=== PATIENT | female | born 1975 | race Caucasian/White ===

== ENCOUNTER → 2017-07-01 | Outpatient (CLI) | payer BC ==
--- NOTE | 2017-07-01 15:45 | MG ---
Examination: Bilateral screening mammogram. Clinical history: Routine screening. Technique: Digital CC and MLO views of both breasts were obtained. Implant displaced views of both br easts were also obtained. Computer aided detection analysis was performed and used during the interpr etation. Comparison: 10/19/2012. Findings: The breasts are heterogeneously dense, reducing the sensitivity of mammography. Bilateral saline pros theses are normal in appearance. No suspicious mass, area of architectural distortion or suspicious cluster of microcalcifications is noted. Impression: 1. No mammographic evidence of malignancy. BI-RADS category 1-negative. Recommend routine annual screening mammogram. Diagnostic CAD was utilized and reviewed. * 0 (ZERO) - ASSESSMENT INCOMPLETE; ADDITIONAL IMAGING IS NEEDED. * 0C - ASSESSMENT INCOMPLETE, NEEDS ADDITIONAL IMAGING EVALUATION AND/OR PRIOR MAMMOGRAMS FOR COMPARI SON. * 1/1 (ONE) - NEGATIVE. * 2/II (TWO) - BENIGN FINDINGS. * 3/III (THREE) - PROBABLY BENIGN FINDING; SHORT INTERVAL FOLLOW-UP SUGGESTED. * 4/IV (FOUR) - SUSPICIOUS ABNORMALITY; BIOPSY SHOULD BE CONSIDERED. * 5/V - HIGHLY SUSPICIOUS OF MALIGNANCY; BIOPSY SHOULD BE PERFORMED. * 6/IV - KNOWN BIOPSY PROVEN MALIGNANCY-APPROPRIATE ACTION SHOULD BE TAKEN. A NEGATIVE X-RAY REPORT SHOULD NOT DELAY BIOPSY IF A DOMINANT OR CLINICALLY SUSPICIOUS MASS IS PRESENT; 4 TO 8 PERCENT OF CANCERS ARE NOT IDENTIFIED BY X-RAY. A NEGATIVE REPORT MAY REINFORCE THE CLINICAL IMPRESSION. ADENOSIS AND DENSE BREASTS MAY OBSCURE AN UNDERLYING NEOPLASM. Reported By:
== END ==
LOC: RAD 09:43
PROVIDERS: ATTEND Nurse Practitioner Family
DX: Z12.31 Encounter for screening mammogram for malignant neoplasm of breast (principal)
CPT/HCPCS: 77067

== ENCOUNTER 2020-03-15 11:09 | Observation (INO) ==
[2020-03-15] MEDS ORDERED: NS 1000 ML 1,000 ML ONE (12:55)
[2020-03-15] MEDS ORDERED: LEVAQUIN PREMIX IV 750 MG 750 MG/150 ML BAG IV SCH (13:00)
[2020-03-15] MEDS ORDERED: ZOFRAN INJ 4 MG VIAL IVP PRN (13:10)
[2020-03-15] MEDS: NS 1000 ML 1,000 ML IV SCH (13:11)
[2020-03-15] MEDS ORDERED: ZOFRAN INJ 4 MG VIAL ONE (13:12)
[2020-03-15 13:29] LABS: BASOPHILS % (AUTO) 0.4 % (0.2-1.0); EOSINOPHILS % (AUTO) 0.1 % (0.9-2.9); HEMATOCRIT 42.4 % (36.0-47.0); LYMPHOCYTES # (AUTO) 1.8 X10^3/uL (1.3-2.9); LYMPHOCYTES % (AUTO) 17.6 % (21.0-51.0); MEAN CORPUSCULAR HEMOGLOBIN 27.7 pg (27.0-34.0); MEAN CORPUSCULAR HGB CONC 33.1 g/dL (33.0-35.0); MEAN CORPUSCULAR VOLUME 83.8 fL (80.0-100.0); MEAN PLATELET VOLUME 8.3 fL (7.4-11.0); MONOCYTES # (AUTO) 0.6 x10^3/uL (0.3-0.8); MONOCYTES % (AUTO) 6.3 % (0.0-13.0); NEUTROPHILS # (AUTO) 7.7 x10^3/uL (2.2-4.8); NEUTROPHILS % (AUTO) 75.6 % (42.0-75.0); PLATELET COUNT 272 X10^3/uL (150.0-450.0); RED BLOOD COUNT 5.06 X10^6/uL (3.5-5.4); RED CELL DISTRIBUTION WIDTH 14.3 % (11.6-16.5); WHITE BLOOD COUNT 10.1 X10^3/uL (3.6-10.0)
[2020-03-15 13:49] LABS: ALANINE AMINOTRANSFERASE 22 Units/L (12-78); ALBUMIN 4.4 g/dL (3.4-5.0); ALKALINE PHOSPHATASE 61 Units/L (46-116); ASPARTATE AMINO TRANSFERASE 16 Units/L (15-37); BLOOD UREA NITROGEN 10 mg/dL (7-18); CALCIUM 8.9 mg/dL (8.5-10.1); CARBON DIOXIDE 27.4 mmol/L (21-32); CHLORIDE 101 mmol/L (98-107); CKMB % 1.3 % (<4); CREATINE KINASE 79 Units/L (26-192); CREATINE KINASE MB < 1.0 ng/mL (0-4.0); CREATININE 0.82 mg/dL (0.55-1.02); SODIUM 139 mmol/L (136-145); TOTAL PROTEIN 8.4 g/dL (6.4-8.2); TROPONIN I < 0.02 ng/mL (0-1.5); eGFR NON BLACK RACES > 60 (>60)
--- NOTE | 2020-03-15 13:49 | RAD ---
HISTORYCHEST PAINSTUDYCHEST, 1 VIEWCOMPARISONNoneFINDINGSThe trachea is midline. The cardiac silhouette is unremarkable . The lungs are clear without focal infiltrate or effusion. The bony thorax is unremarkable.IMPRESSIONNo acute cardiopulmonary disease.Electronically signed by: PARKER SAM (Mar 15, 2020 13:48:45)
[2020-03-15] MEDS ORDERED: KLOR-CON PO PRN (14:17)
[2020-03-15] MEDS ORDERED: POTASSIUM CHLORIDE LIQ 20 MEQ UDC PO PRN (14:17)
[2020-03-15] MEDS ORDERED: MICRO K EXTEN CAP 10 MEQ PO PRN (14:17)
[2020-03-15] MEDS ORDERED: POTASSIUM CHL 40 MEQ/NS 0.45% 500 ML IV PRN (14:17)
[2020-03-15] MEDS ORDERED: POTASSIUM CHL 60 MEQ/NS 0.45% 500 ML IV PRN (14:17)
[2020-03-15] MEDS ORDERED: K-RIDER 10 MEQ/NS 100 ML 10 MEQ/100 ML BAG IV PRN (14:17)
[2020-03-15 14:45] VITALS: BMI 32.3
[2020-03-15] MEDS: K-DUR TAB 20 MEQ PO PRN (14:48)
[2020-03-15] MEDS: FLONASE NASAL SPRAY ENOSTRIL SCH (14:48)
[2020-03-15] MEDS: ROCEPHIN VIAL 1 GRAM 1 G in NS 100 ML IV + SPIKE MINIBAG* 100 ML IV SCH (14:49)
[2020-03-15 16:56] LABS: CKMB % 1.4 % (<4); CREATINE KINASE 71 Units/L (26-192); CREATINE KINASE MB < 1.0 ng/mL (0-4.0); TROPONIN I < 0.02 ng/mL (0-1.5)
[2020-03-15 21:11] LABS: CKMB % 1.4 % (<4); CREATINE KINASE 72 Units/L (26-192); CREATINE KINASE MB < 1.0 ng/mL (0-4.0); TROPONIN I < 0.02 ng/mL (0-1.5)
[2020-03-15] MEDS: ZOFRAN INJ 4 MG VIAL 16 MG, ATIVAN INJ 2 MG VIAL 1 MG, DECADRON INJ 10 MG in NS 50 ML I... IV PRN (22:17)
[2020-03-15] MEDS: MUCINEX DM PO SCH (22:17)
[2020-03-16] MEDS: NS 1000 ML 1,000 ML IV SCH ×3 (01:04→18:30)
[2020-03-16 05:42] LABS: BASOPHILS % (AUTO) 0.1 % (0.2-1.0); HEMATOCRIT 38.6 % (36.0-47.0); HEMOGLOBIN 12.8 g/dL (12.0-16.0); LYMPHOCYTES # (AUTO) 0.9 X10^3/uL (1.3-2.9); LYMPHOCYTES % (AUTO) 7.9 % (21.0-51.0); MEAN CORPUSCULAR HGB CONC 33.2 g/dL (33.0-35.0); MEAN CORPUSCULAR VOLUME 84.2 fL (80.0-100.0); MEAN PLATELET VOLUME 8.6 fL (7.4-11.0); MONOCYTES # (AUTO) 0.1 x10^3/uL (0.3-0.8); MONOCYTES % (AUTO) 1.2 % (0.0-13.0); NEUTROPHILS % (AUTO) 90.8 % (42.0-75.0); PLATELET COUNT 234 X10^3/uL (150.0-450.0); RED BLOOD COUNT 4.58 X10^6/uL (3.5-5.4); RED CELL DISTRIBUTION WIDTH 14.5 % (11.6-16.5)
[2020-03-16 05:55] LABS: ALANINE AMINOTRANSFERASE 18 Units/L (12-78); ALBUMIN 3.6 g/dL (3.4-5.0); ALKALINE PHOSPHATASE 52 Units/L (46-116); ASPARTATE AMINO TRANSFERASE 13 Units/L (15-37); BLOOD UREA NITROGEN 7 mg/dL (7-18); CALCIUM 8.4 mg/dL (8.5-10.1); CARBON DIOXIDE 24.6 mmol/L (21-32); CHLORIDE 103 mmol/L (98-107); COR NA(FOR HYPERGLY) 139 mmol/L (136-145); CREATININE 0.71 mg/dL (0.55-1.02); SODIUM 138 mmol/L (136-145); TOTAL PROTEIN 7.3 g/dL (6.4-8.2); eGFR NON BLACK RACES > 60 (>60)
[2020-03-16 05:57] LABS: BAND NEUTROPHILS % 2 % (0-10); PLATELET MORPHOLOGY COMMENT NORMAL (NORMAL)
[2020-03-16] MEDS: MUCINEX DM PO SCH ×2 (08:47→21:45)
[2020-03-16] MEDS: FLONASE NASAL SPRAY ENOSTRIL SCH (08:47)
[2020-03-16] MEDS: ROCEPHIN VIAL 1 GRAM 1 G in NS 100 ML IV + SPIKE MINIBAG* 100 ML IV SCH (08:52)
--- NOTE | 2020-03-16 10:36 | DR.UPDATE ---
H&P Update History and Physical Update: History and Physical reviewed and patient examined. Changes noted: Yes with the following: IS A DIRECT ADMISSION TO THE HOSPTIAL DUE TO COMPLAINTS OF CHEST PAIN, SHORTNESS OF BREATH, NAUSEA AND VOMITING, DIARRHEA, SEVERE HEADACHE, SINUS CONGESTION, AND PALPITATIONS. SHE REPORTS TAKING CLINDAMYCIN AND MUCINEX AT HOME X 2 DAYS, BUT STOPPED TAKING DUE TO PALPITATIONS AND INCREASED NAUSEA AND VOMITING. ON ARRIVAL TO THE HOSPTIAL, VITALS WERE 99.2-76-20-97%-132/64. LABS WERE OBTAINED. ABNORMAL LAB VALUES INCLUDE THE FOLLOWING: WBC 10.1, POTASSIUM 3.2, TOTAL PROTEIN 8.4. CARDIAC ENZYMES WITHIN NORMAL LIMITS. STOOL STUDIES WERE OBTAINED AND WERE NORMAL. COVID-19 NEGATIVE. BLOOD AND STOOL CULTURES WERE SET UP. A CHEST XRAY WAS OBTAINED AND REVEALED: NO ACUTE CARDIOPULMONARY DISEASE. AN EKG WAS OBTAINED AND REVEALED: SINUS RHYTHM WITH HR 66. SHE WAS STARTED ON NORMAL SALINE AT 80 ML/HR, ROCEPHIN 1G IV DAILY, FLONASE 2 SPRAYS TO EACH NOSTRIL DAILY, MUCINEX DM 1 TABLET PO BID, THE POTASSIUM AND MAGNESIUM PROTOCOLS, AND A ZOFRAN COCKTAIL. TODAY, WE WILL OBTAIN A BRAIN CT WITHOUT CONTRAST DUE TO SEVERE HEADACHE. OTHERWISE, WE PLAN TO FOLLOW UP WITH AM LABS AND CONTINUE TO MONITOR. Prescription drug monitoring program results: PDMP was not reviewed H&P Reviewed: Yes Patient was examined?: Yes
[2020-03-16] MEDS ORDERED: ZOFRAN INJ 4 MG VIAL ONE (12:41)
[2020-03-16] MEDS ORDERED: DECADRON INJ ONE (12:42)
[2020-03-16] MEDS ORDERED: NS 50 ML IV 50 ML IV ONE (12:42)
[2020-03-16] MEDS ORDERED: ATIVAN INJ 2 MG VIAL ONE (12:43)
[2020-03-16] MEDS: ZOFRAN INJ 4 MG VIAL 16 MG, ATIVAN INJ 2 MG VIAL 1 MG, DECADRON INJ 10 MG in NS 50 ML I... IV PRN (13:20)
--- NOTE | 2020-03-16 15:10 | CT ---
BRAIN W/O CONCLINICAL INDICATION: SEVERE HEADACHESTECHNIQUE: Images were obtained through the head per standard CT protocol. Multiplanar reformatted images were generated from the CT dataset. Dose reduction techniques including Automated Exposure Control (AEC) and adjustment of mA and kV were utlized.COMPARISON:None.FINDINGS:There is no abnormal brain parenchymal density . There is no evidence of acute infarction, intracranial hemorrhage, mass or mass effect, or abnormal extra-axial collection . The density of the larger dural venous sinuses is normal . The ventricles are normal in size, shape and position . The skull base and calvarium are normal .The included paranasal sinuses and mastoid air cells are predominantly clear .IMPRESSION:1. No acute intracranial abnormality.Electronically signed by: TIFFANY EDWARDS (Mar 16, 2020 15:09:41)
[2020-03-16] MEDS ORDERED: BUTT CREAM (COMPOUND) TOP PRN (16:05)
[2020-03-16] MEDS ORDERED: BUTT CREAM (COMPOUND) ONE (16:07)
[2020-03-16] MEDS: TYLENOL 325 MG TAB PO PRN (22:21)
[2020-03-17] MEDS: NS 1000 ML 1,000 ML IV SCH ×3 (04:15→22:27)
[2020-03-17 05:50] LABS: BASOPHILS % (AUTO) 0.1 % (0.2-1.0); EOSINOPHILS % (AUTO) 0.1 % (0.9-2.9); HEMATOCRIT 36.2 % (36.0-47.0); LYMPHOCYTES # (AUTO) 2.2 X10^3/uL (1.3-2.9); LYMPHOCYTES % (AUTO) 14.5 % (21.0-51.0); MEAN CORPUSCULAR HEMOGLOBIN 27.6 pg (27.0-34.0); MEAN CORPUSCULAR HGB CONC 33.2 g/dL (33.0-35.0); MEAN CORPUSCULAR VOLUME 83.2 fL (80.0-100.0); MEAN PLATELET VOLUME 8.2 fL (7.4-11.0); MONOCYTES % (AUTO) 6.7 % (0.0-13.0); NEUTROPHILS % (AUTO) 78.6 % (42.0-75.0); PLATELET COUNT 217 X10^3/uL (150.0-450.0); RED BLOOD COUNT 4.35 X10^6/uL (3.5-5.4); RED CELL DISTRIBUTION WIDTH 14.6 % (11.6-16.5); WHITE BLOOD COUNT 15.2 X10^3/uL (3.6-10.0)
[2020-03-17 06:00] LABS: ALANINE AMINOTRANSFERASE 20 Units/L (12-78); ALBUMIN 3.4 g/dL (3.4-5.0); ALKALINE PHOSPHATASE 44 Units/L (46-116); ASPARTATE AMINO TRANSFERASE 12 Units/L (15-37); BLOOD UREA NITROGEN 8 mg/dL (7-18); CALCIUM 8.2 mg/dL (8.5-10.1); CARBON DIOXIDE 25.5 mmol/L (21-32); CHLORIDE 105 mmol/L (98-107); CREATININE 0.76 mg/dL (0.55-1.02); SODIUM 140 mmol/L (136-145); TOTAL PROTEIN 6.6 g/dL (6.4-8.2); eGFR NON BLACK RACES > 60 (>60)
--- NOTE | 2020-03-17 07:17 | PCM.PROG ---
Progress Note - Progress Note for Day of Date of Exam: 03/16/20 - Subjective Subjective: IS BEING TREATED FOR CHEST PAIN RULE OUT ACUTE [place], LEUKOCYTOSIS, AND ACUTE SINUS INFECTION. TODAY, SHE IS ALERT AND OREINTED, LYING IN BED ON MORNING ROUNDS. SHE CONTINUES WITH SHORTNESS OF BREATH AT TIMES, SEVERE HEADACHE, AND SINUS CONGESTION. ON EXAMINATION, HEART IS REGULAR IN RATE AND RHYTHM. BILATERAL LUNGS ARE NOTED WITH DIMINISHED LUNG SOUNDS THROUGHOUT. ABDOMEN IS ROUND, SOFT, AND NON-TENDER WITH NORMAL BOWEL SOUNDS NOTED IN ALL QUADRANTS. HER VITALS THIS MORNING ARE: 98..-80-18-98%-143/78. LABS WERE OBTAINED. ABNORMAL LAB VALUES INCLUDE THE FOLLOWING: WBC 11.0, GLUCOSE 131, CALCIUM 8.4, AST 13. CARDIAC ENZYMES ARE WITHIN NORMAL LIMITS. BLOOD AND STOOL CULTURES ARE PENDING. NO CHANGES NOTED TO EKGS. SHE IS CURRENTLY RECEIVING NORMAL SALINE AT 80 ML/HR, ROCEPHIN 1G IV DAILY, FLONASE 2 SPRAYS TO EACH NOSTRIL DAILY, MUCINEX DM 1 TABLET PO BID, THE POTASSIUM AND MAGNESIUM PROTOCOLS, AND A ZOFRAN COCKTAIL. WE WILL OBTAIN A BRAIN CT WITHOUT CONTRAST TODAY. OTHERWISE, WE PLAN TO FOLLOW UP WITH AM LABS AND CONTINUE TO MONITOR. - Past Medical Family Social History Past Med/Fam/Surg Hx: No changes since H&P Allergies: Allergies ibuprofen Allergy (Verified 03/15/20 13:14) levofloxacin [From Levaquin] Allergy (Verified 03/15/20 14:19) - Review of Systems ROS: No change since H&P - Vital Signs and I&O's Vital Signs: Temperature 98.8 F Pulse Rate [Right Brachial] 60 Respiratory Rate 16 Blood Pressure [Right Arm] 114/56 O2 Sat by Pulse Oximetry 97 Intake and Output: Intake & Output 03/14/20 03/15/20 03/16/20 03/17/20 11:59 11:59 11:59 11:59 Intake Total 1859 3902 / 3902 Balance 1859 3902 / 3902 - Physical Exam Oriented: Normal Eyes: Normal Ear: Normal Nose: Normal Throat: Normal Respiratory: Generalized, Diminished Cardiovascular: Normal : Normal Auscultation: Bowel Sounds: Normal Palpation: Normal Tenderness: Normal Skin: Normal Musculoskeletal: Normal Psychiatric: Normal Mood Description: Calm Affect: Normal Speech Pattern: Clear, Appropriate - Laboratory and Diagnostics Result Diagrams: 03/17/20 05:15 03/17/20 05:15 Labs: 03/15/20 13:09 Blood Blood Culture - Preliminary 03/15/20 13:00 Blood Blood Culture - Preliminary 03/15/20 18:00 Stool - Final Laboratory WBC 15.2 X10^3/uL (3.6-10.0) H 03/17/20 05:15 RBC 4.35 X10^6/uL (3.5-5.4) 03/17/20 05:15 Hgb 12.0 g/dL (12.0-16.0) 03/17/20 05:15 Hct 36.2 % (36.0-47.0) 03/17/20 05:15 MCV 83.2 fL (80.0-100.0) 03/17/20 05:15 MCH 27.6 pg (27.0-34.0) 03/17/20 05:15 MCHC 33.2 g/dL (33.0-35.0) 03/17/20 05:15 RDW 14.6 % (11.6-16.5) 03/17/20 05:15 Plt Count 217 X10^3/uL (150.0-450.0) 03/17/20 05:15 Plt Count Comment Adequate (ADEQUATE) 03/16/20 04:20 MPV 8.2 fL (7.4-11.0) 03/17/20 05:15 Neut % (Auto) 78.6 % (42.0-75.0) H 03/17/20 05:15 Lymph % (Auto) 14.5 % (21.0-51.0) L 03/17/20 05:15 Preston % (Auto) 6.7 % (0.0-13.0) 03/17/20 05:15 Eos % (Auto) 0.1 % (0.9-2.9) L 03/17/20 05:15 Baso % (Auto) 0.1 % (0.2-1.0) L 03/17/20 05:15 Neut # (Auto) 12.0 x10^3/uL (2.2-4.8) H 03/17/20 05:15 Lymph # (Auto) 2.2 X10^3/uL (1.3-2.9) 03/17/20 05:15 Preston # (Auto) 1.0 x10^3/uL (0.3-0.8) H 03/17/20 05:15 Eos # (Auto) 0.0 x10^3/uL (0.0-0.2) 03/17/20 05:15 Baso # (Auto) 0.0 X10^3/uL (0.0-0.1) 03/17/20 05:15 Absolute Nucleated RBC 0.0 /100WBC 03/17/20 05:15 Total Counted 100 03/16/20 04:20 Neutrophils % (Manual) 90 % (39-76) H 03/16/20 04:20 Band Neutrophils % 2 % (0-10) 03/16/20 04:20 Lymphocytes % (Manual) 7 % (13-43) L 03/16/20 04:20 Monocytes % (Manual) 1 % (4-9) L 03/16/20 04:20 Plt Morphology Comment Normal (NORMAL) 03/16/20 04:20 RBC Morphology Normal (NORMAL) 03/16/20 04:20 Sodium 140 mmol/L (136-145) 03/17/20 05:15 Corrected Sodium TNP 03/17/20 05:15 Potassium 3.1 mmol/L (3.5-5.1) L 03/17/20 05:15 Chloride 105 mmol/L (98-107) 03/17/20 05:15 Carbon Dioxide 25.5 mmol/L (21-32) 03/17/20 05:15 BUN 8 mg/dL (7-18) 03/17/20 05:15 Creatinine 0.76 mg/dL (0.55-1.02) 03/17/20 05:15 Est GFR (MDRD) Af Amer > 60 (>60) 03/17/20 05:15 Est GFR (MDRD) Non-Af > 60 (>60) 03/17/20 05:15 Glucose 110 mg/dL (65-99) H 03/17/20 05:15 Calcium 8.2 mg/dL (8.5-10.1) L 03/17/20 05:15 Corrected Calcium TNP 03/17/20 05:15 Magnesium 1.7 mg/dL (1.7-2.9) 03/15/20 13:00 Ferritin 44 ng/mL (8-252) 03/15/20 13:00 Total Bilirubin 0.30 mg/dL (0.2-1.0) 03/17/20 05:15 AST 12 Units/L (15-37) L 03/17/20 05:15 ALT 20 Units/L (12-78) 03/17/20 05:15 Alkaline Phosphatase 44 Units/L (46-116) L 03/17/20 05:15 Creatine Kinase 72 Units/L (26-192) 03/15/20 20:44 CK-MB (CK-2) < 1.0 ng/mL (0-4.0) 03/15/20 20:44 CK/CKMB % Calc 1.4 % (<4) 03/15/20 20:44 Troponin I < 0.02 ng/mL (0-1.5) 03/15/20 20:44 C-Reactive Protein < 0.50 mg/L (0-3.0) 03/15/20 13:00 Total Protein 6.6 g/dL (6.4-8.2) 03/17/20 05:15 Albumin 3.4 g/dL (3.4-5.0) 03/17/20 05:15 Globulin 3.2 g/dL (2.5-4.5) 03/17/20 05:15 Albumin/Globulin Ratio 1.1 Ratio (1.1-2.1) 03/17/20 05:15 Stool Description 10 g.liquid/brown 03/15/20 18:00 Stl Occult Blood (IFOB) Negative (NEGATIVE) 03/15/20 18:00 Stool for White Cells Negative (NEGATIVE) 03/15/20 18:00 Stl C. diff Tox B Gene Negative (NEGATIVE) 03/15/20 18:00 Stl C. diff 027-NAP1-BI Negative (NEGATIVE) 03/15/20 18:00 SARS-CoV-2 (PCR) Negative (NEGATIVE) 03/15/20 12:15 - Plan (1) Leukocytosis Status: Acute Qualifiers: Leukocytosis type: unspecified Qualified Code(s): D72.829 - Elevated white blood cell count, unspecified Plan: NORMAL SALINE AT 80 ML/HR, ROCEPHIN 1G IV DAILY, FLONASE 2 SPRAYS TO EACH NOSTRIL DAILY, MUCINEX DM 1 TABLET PO BID, THE POTASSIUM AND MAGNESIUM PROTOCOLS, AND A ZOFRAN COCKTAIL (2) Sinus infection Status: Acute Qualifiers: Sinusitis location: frontal Chronicity: acute (3) Severe headache Status: Acute (4) Chest pain, rule out acute myocardial infarction Status: Acute
[2020-03-17] MEDS: TYLENOL 325 MG TAB PO PRN (08:18)
[2020-03-17] MEDS: K-DUR TAB 20 MEQ PO PRN (08:19)
[2020-03-17] MEDS: ROCEPHIN VIAL 1 GRAM 1 G in NS 100 ML IV + SPIKE MINIBAG* 100 ML IV SCH (08:19)
[2020-03-17] MEDS: FLONASE NASAL SPRAY ENOSTRIL SCH (08:30)
[2020-03-17] MEDS: ZOFRAN INJ 4 MG VIAL 16 MG, ATIVAN INJ 2 MG VIAL 1 MG, DECADRON INJ 10 MG in NS 50 ML I... IV PRN ×2 (08:41→21:00)
[2020-03-17] MEDS: MUCINEX DM PO SCH ×2 (10:55→20:58)
[2020-03-17] MEDS ORDERED: ZOSYN VIAL 4.5 GRAMS IV ONE (11:05)
[2020-03-17] MEDS: ZOSYN VIAL 4.5 GRAMS 4.5 G in NS 100 ML IV 100 ML IV SCH ×3 (11:12→21:00)
[2020-03-17 12:33] LABS: MAGNESIUM 1.5 mg/dL (1.7-2.9)
[2020-03-17] MEDS: MAGNESIUM SULFATE 1 GRAM/100 mL PREMIX 1 GM/100 ML BAG IV PRN ×2 (13:42→17:04)
[2020-03-17] MEDS ORDERED: NS 100 ML IV + SPIKE MINIBAG* 100 ML IV ONE (19:18)
--- NOTE | 2020-03-17 23:31 | PCM.PROG ---
Progress Note - Progress Note for Day of Date of Exam: 03/17/20 - Subjective Subjective: IS BEING TREATED FOR CHEST PAIN RULE OUT ACUTE [place], LEUKOCYTOSIS, AND ACUTE SINUS INFECTION. TODAY, SHE IS ALERT AND OREINTED, LYING IN BED ON MORNING ROUNDS. SHE CONTINUES WITH SEVERE HEADACHE AND SINUS CONGESTION. SHE REPORTS A BURING SENSATION THAT STARTS AT THE BASE OF THE HEAD A ND RUNS DOWN THE SPINE TO THE FEET. SHE DENIES CHEST PAIN THIS MORNING. ON EXAMINATION, HEART IS REGULAR IN RATE AND RHYTHM. BILATERAL LUNGS ARE NOTED WITH DIMINISHED LUNG SOUNDS THROUGHOUT. ABDOMEN IS ROUND, SOFT, AND NON-TENDER WITH NORMAL BOWEL SOUNDS NOTED IN ALL QUADRANTS. HER VITALS THIS MORNING ARE: 98.7-60-16-97%-114/56. LABS WERE OBTAINED. ABNORMAL LAB VALUES INCLUDE THE FOLLOWING: WBC INCREASED TO 15.2, POTASSIUM 3.1, GLUCOSE 110, CALCIUM 8.2, AST 12, ALK PHOS 44, . CARDIAC ENZYMES ARE WITHIN NORMAL LIMITS. BLOOD AND STOOL CULTURES ARE PENDING. NO CHANGES NOTED TO EKGS. BRAIN CT WAS NEGATIVE. SHE IS CURRENTLY RECEIVING NORMAL SALINE AT 80 ML/HR, ROCEPHIN 1G IV DAILY, FLONASE 2 SPRAYS TO EACH NOSTRIL DAILY, MUCINEX DM 1 TABLET PO BID, THE POTASSIUM AND MAGNESIUM PROTOCOLS, AND A ZOFRAN COCKTAIL. TODAY, WE WILL DISCONTINUE THE ROCEPHIN AND START ZOSYN 4.5G IV TID. WE WILL CHECK A CRP AND ESR LEVEL THIS MORNING. SHE IS CURRENTLY FOLLOWED BY A [facility] CONSULTANT. WE WILL OBTAIN LAB WORK THAT WAS RECENTLY COLLECTED AT HIS OFFICE. OTHERWISE, WE PLAN TO FOLLOW UP WITH AM LABS AND CONTINUE TO MONITOR. - Past Medical Family Social History Past Med/Fam/Surg Hx: No changes since H&P Allergies: Allergies ibuprofen Allergy (Verified 03/15/20 13:14) levofloxacin [From Levaquin] Allergy (Verified 03/15/20 14:19) - Review of Systems ROS: No change since H&P - Vital Signs and I&O's Vital Signs: Temperature 99.1 F Pulse Rate [Right Brachial] 69 Respiratory Rate 18 Blood Pressure [Right Arm] 125/66 O2 Sat by Pulse Oximetry 96 Intake and Output: Intake & Output 03/15/20 03/16/20 03/17/20 03/18/20 11:59 11:59 11:59 11:59 Intake Total 1860 / 1860 3902 / 3902 2180 / 2180 Balance 1859 3902 / 3902 2180 / 2180 - Physical Exam Oriented: Normal Eyes: Normal Ear: Normal Nose: Normal Throat: Normal Respiratory: Generalized, Diminished Cardiovascular: Normal : Normal Auscultation: Bowel Sounds: Normal Tenderness: Normal Skin: Normal Musculoskeletal: Normal Psychiatric: Normal Mood Description: Calm Affect: Normal Speech Pattern: Clear, Appropriate - Laboratory and Diagnostics Result Diagrams: 03/17/20 05:15 03/17/20 12:16 Labs: 03/15/20 18:00 Stool Stool Culture - Preliminary 03/15/20 18:00 Stool - Final 03/15/20 13:09 Blood Blood Culture - Preliminary 03/15/20 13:00 Blood Blood Culture - Preliminary Laboratory WBC 15.2 X10^3/uL (3.6-10.0) H 03/17/20 05:15 RBC 4.35 X10^6/uL (3.5-5.4) 03/17/20 05:15 Hgb 12.0 g/dL (12.0-16.0) 03/17/20 05:15 Hct 36.2 % (36.0-47.0) 03/17/20 05:15 MCV 83.2 fL (80.0-100.0) 03/17/20 05:15 MCH 27.6 pg (27.0-34.0) 03/17/20 05:15 MCHC 33.2 g/dL (33.0-35.0) 03/17/20 05:15 RDW 14.6 % (11.6-16.5) 03/17/20 05:15 Plt Count 217 X10^3/uL (150.0-450.0) 03/17/20 05:15 Plt Count Comment Adequate (ADEQUATE) 03/16/20 04:20 MPV 8.2 fL (7.4-11.0) 03/17/20 05:15 Neut % (Auto) 78.6 % (42.0-75.0) H 03/17/20 05:15 Lymph % (Auto) 14.5 % (21.0-51.0) L 03/17/20 05:15 [place] % (Auto) 6.7 % (0.0-13.0) 03/17/20 05:15 Eos % (Auto) 0.1 % (0.9-2.9) L 03/17/20 05:15 Baso % (Auto) 0.1 % (0.2-1.0) L 03/17/20 05:15 Neut # (Auto) 12.0 x10^3/uL (2.2-4.8) H 03/17/20 05:15 Lymph # (Auto) 2.2 X10^3/uL (1.3-2.9) 03/17/20 05:15 [place] # (Auto) 1.0 x10^3/uL (0.3-0.8) H 03/17/20 05:15 Eos # (Auto) 0.0 x10^3/uL (0.0-0.2) 03/17/20 05:15 Baso # (Auto) 0.0 X10^3/uL (0.0-0.1) 03/17/20 05:15 Absolute Nucleated RBC 0.0 /100WBC 03/17/20 05:15 Total Counted 100 03/16/20 04:20 Neutrophils % (Manual) 90 % (39-76) H 03/16/20 04:20 Band Neutrophils % 2 % (0-10) 03/16/20 04:20 Lymphocytes % (Manual) 7 % (13-43) L 03/16/20 04:20 Monocytes % (Manual) 1 % (4-9) L 03/16/20 04:20 Plt Morphology Comment Normal (NORMAL) 03/16/20 04:20 RBC Morphology Normal (NORMAL) 03/16/20 04:20 ESR 6 MM/HOUR (0-20) 03/17/20 05:15 Sodium 140 mmol/L (136-145) 03/17/20 05:15 Corrected Sodium TNP 03/17/20 05:15 Potassium 3.4 mmol/L (3.5-5.1) L 03/17/20 12:16 Chloride 105 mmol/L (98-107) 03/17/20 05:15 Carbon Dioxide 25.5 mmol/L (21-32) 03/17/20 05:15 BUN 8 mg/dL (7-18) 03/17/20 05:15 Creatinine 0.76 mg/dL (0.55-1.02) 03/17/20 05:15 Est GFR (MDRD) Af Amer > 60 (>60) 03/17/20 05:15 Est GFR (MDRD) Non-Af > 60 (>60) 03/17/20 05:15 Glucose 110 mg/dL (65-99) H 03/17/20 05:15 Calcium 8.2 mg/dL (8.5-10.1) L 03/17/20 05:15 Corrected Calcium TNP 03/17/20 05:15 Magnesium 1.5 mg/dL (1.7-2.9) L 03/17/20 12:16 Ferritin 44 ng/mL (8-252) 03/15/20 13:00 Total Bilirubin 0.30 mg/dL (0.2-1.0) 03/17/20 05:15 AST 12 Units/L (15-37) L 03/17/20 05:15 ALT 20 Units/L (12-78) 03/17/20 05:15 Alkaline Phosphatase 44 Units/L (46-116) L 03/17/20 05:15 Creatine Kinase 72 Units/L (26-192) 03/15/20 20:44 CK-MB (CK-2) < 1.0 ng/mL (0-4.0) 03/15/20 20:44 CK/CKMB % Calc 1.4 % (<4) 03/15/20 20:44 Troponin I < 0.02 ng/mL (0-1.5) 03/15/20 20:44 C-Reactive Protein 0.00 mg/L (0-3.0) 03/17/20 09:00 Total Protein 6.6 g/dL (6.4-8.2) 03/17/20 05:15 Albumin 3.4 g/dL (3.4-5.0) 03/17/20 05:15 Globulin 3.2 g/dL (2.5-4.5) 03/17/20 05:15 Albumin/Globulin Ratio 1.1 Ratio (1.1-2.1) 03/17/20 05:15 Stool Description 10 g.liquid/brown 03/15/20 18:00 Stl Occult Blood (IFOB) Negative (NEGATIVE) 03/15/20 18:00 Stool for White Cells Negative (NEGATIVE) 03/15/20 18:00 Stl C. diff Tox B Gene Negative (NEGATIVE) 03/15/20 18:00 Stl C. diff [id number]-BI Negative (NEGATIVE) 03/15/20 18:00 SARS-CoV-2 (PCR) Negative (NEGATIVE) 03/15/20 12:15 - Plan (1) Leukocytosis Status: Acute Qualifiers: Leukocytosis type: unspecified Qualified Code(s): D72.829 - Elevated white blood cell count, unspecified Plan: NORMAL SALINE AT 80 ML/HR, ROCEPHIN 1G IV DAILY, FLONASE 2 SPRAYS TO EACH NOSTRIL DAILY, MUCINEX DM 1 TABLET PO BID, THE POTASSIUM AND MAGNESIUM P ROTOCOLS, AND A ZOFRAN COCKTAIL (2) Sinus infection Status: Acute Qualifiers: Sinusitis location: frontal Chronicity: acute (3) Severe headache Status: Acute (4) Chest pain, rule out acute myocardial infarction Status: Acute
[2020-03-18] MEDS: NS 1000 ML 1,000 ML IV SCH ×2 (05:19→21:07)
[2020-03-18] MEDS: ZOSYN VIAL 4.5 GRAMS 4.5 G in NS 100 ML IV 100 ML IV SCH ×3 (05:19→21:07)
[2020-03-18 05:36] LABS: BASOPHILS % (AUTO) 0.1 % (0.2-1.0); HEMATOCRIT 34.9 % (36.0-47.0); HEMOGLOBIN 11.5 g/dL (12.0-16.0); LYMPHOCYTES # (AUTO) 1.1 X10^3/uL (1.3-2.9); LYMPHOCYTES % (AUTO) 9.9 % (21.0-51.0); MEAN CORPUSCULAR HEMOGLOBIN 27.7 pg (27.0-34.0); MEAN CORPUSCULAR HGB CONC 32.9 g/dL (33.0-35.0); MEAN CORPUSCULAR VOLUME 84.1 fL (80.0-100.0); MEAN PLATELET VOLUME 8.8 fL (7.4-11.0); MONOCYTES # (AUTO) 0.4 x10^3/uL (0.3-0.8); MONOCYTES % (AUTO) 3.3 % (0.0-13.0); NEUTROPHILS # (AUTO) 9.9 x10^3/uL (2.2-4.8); NEUTROPHILS % (AUTO) 86.7 % (42.0-75.0); PLATELET COUNT 211 X10^3/uL (150.0-450.0); RED BLOOD COUNT 4.15 X10^6/uL (3.5-5.4); RED CELL DISTRIBUTION WIDTH 14.2 % (11.6-16.5); WHITE BLOOD COUNT 11.4 X10^3/uL (3.6-10.0)
[2020-03-18 05:41] LABS: ALANINE AMINOTRANSFERASE 20 Units/L (12-78); ALBUMIN 3.3 g/dL (3.4-5.0); ALKALINE PHOSPHATASE 42 Units/L (46-116); ASPARTATE AMINO TRANSFERASE 9 Units/L (15-37); BLOOD UREA NITROGEN 8 mg/dL (7-18); CALCIUM 7.9 mg/dL (8.5-10.1); CARBON DIOXIDE 28.1 mmol/L (21-32); CHLORIDE 103 mmol/L (98-107); COR CA(FOR HYPOALB) 8.5 mg/dL (8.5-10.1); COR NA(FOR HYPERGLY) 140 mmol/L (136-145); MAGNESIUM 1.7 mg/dL (1.7-2.9); SODIUM 139 mmol/L (136-145); TOTAL PROTEIN 6.6 g/dL (6.4-8.2); eGFR NON BLACK RACES > 60 (>60)
[2020-03-18 06:25] LABS: ERYTHROCYTE SEDIMENTATION RATE 7 MM/HOUR (0-20)
[2020-03-18] MEDS: MAGNESIUM SULFATE 1 GRAM/100 mL PREMIX 1 GM/100 ML BAG IV PRN ×2 (06:45→08:48)
[2020-03-18] MEDS: K-DUR TAB 20 MEQ PO PRN (08:48)
[2020-03-18] MEDS: FLONASE NASAL SPRAY ENOSTRIL SCH (08:50)
[2020-03-18] MEDS: MUCINEX DM PO SCH (08:50)
[2020-03-18] MEDS ORDERED: VALIUM PO ONE (09:43)
[2020-03-18] MEDS ORDERED: SOLU-Medrol 125 MG VIAL IVP ONE (09:44)
[2020-03-18] MEDS ORDERED: VALIUM ONE (09:49)
[2020-03-18] MEDS: SOLU-Medrol 40 MG VIAL IVP SCH ×2 (13:39→21:07)
[2020-03-18] MEDS: TYLENOL 325 MG TAB PO PRN (14:07)
[2020-03-18] MEDS ORDERED: DUONEB 0.5 MG/3 MG (3 mL) NEB ONE (18:28)
[2020-03-18] MEDS: DUONEB 0.5 MG/3 MG (3 mL) NEB PRN ×2 (18:33→21:20)
[2020-03-18] MEDS ORDERED: NS 100 ML IV + SPIKE MINIBAG* 100 ML IV ONE (19:02)
[2020-03-18] MEDS: VALIUM PO PRN (21:08)
[2020-03-19] MEDS ORDERED: NS 100 ML IV + SPIKE MINIBAG* 100 ML IV ONE (03:50)
[2020-03-19] MEDS: SOLU-Medrol 40 MG VIAL IVP SCH ×3 (05:02→21:12)
[2020-03-19] MEDS: ZOSYN VIAL 4.5 GRAMS 4.5 G in NS 100 ML IV 100 ML IV SCH ×3 (05:03→22:39)
[2020-03-19 06:11] LABS: BASOPHILS % (AUTO) 0.1 % (0.2-1.0); HEMATOCRIT 34.3 % (36.0-47.0); HEMOGLOBIN 11.2 g/dL (12.0-16.0); LYMPHOCYTES # (AUTO) 1.4 X10^3/uL (1.3-2.9); LYMPHOCYTES % (AUTO) 9.4 % (21.0-51.0); MEAN CORPUSCULAR HEMOGLOBIN 27.6 pg (27.0-34.0); MEAN CORPUSCULAR HGB CONC 32.7 g/dL (33.0-35.0); MEAN CORPUSCULAR VOLUME 84.4 fL (80.0-100.0); MEAN PLATELET VOLUME 8.5 fL (7.4-11.0); MONOCYTES # (AUTO) 0.7 x10^3/uL (0.3-0.8); MONOCYTES % (AUTO) 4.7 % (0.0-13.0); NEUTROPHILS # (AUTO) 12.4 x10^3/uL (2.2-4.8); NEUTROPHILS % (AUTO) 85.8 % (42.0-75.0); PLATELET COUNT 196 X10^3/uL (150.0-450.0); RED BLOOD COUNT 4.06 X10^6/uL (3.5-5.4); RED CELL DISTRIBUTION WIDTH 14.6 % (11.6-16.5); WHITE BLOOD COUNT 14.5 X10^3/uL (3.6-10.0)
[2020-03-19 06:13] LABS: ALANINE AMINOTRANSFERASE 24 Units/L (12-78); ALBUMIN 3.1 g/dL (3.4-5.0); ALKALINE PHOSPHATASE 39 Units/L (46-116); ASPARTATE AMINO TRANSFERASE 11 Units/L (15-37); BLOOD UREA NITROGEN 9 mg/dL (7-18); CALCIUM 7.9 mg/dL (8.5-10.1); CARBON DIOXIDE 25.4 mmol/L (21-32); CHLORIDE 105 mmol/L (98-107); COR CA(FOR HYPOALB) 8.6 mg/dL (8.5-10.1); COR NA(FOR HYPERGLY) 141 mmol/L (136-145); CREATININE 0.74 mg/dL (0.55-1.02); MAGNESIUM 1.7 mg/dL (1.7-2.9); SODIUM 140 mmol/L (136-145); TOTAL PROTEIN 6.2 g/dL (6.4-8.2); eGFR NON BLACK RACES > 60 (>60)
[2020-03-19] MEDS: DUONEB 0.5 MG/3 MG (3 mL) NEB PRN ×3 (09:39→21:17)
[2020-03-19] MEDS: FLONASE NASAL SPRAY ENOSTRIL SCH (09:44)
[2020-03-19] MEDS: NS 1000 ML 1,000 ML IV SCH ×2 (09:44→21:10)
[2020-03-19] MEDS: VALIUM PO PRN ×2 (10:40→21:10)
[2020-03-19] MEDS: ROBITUSSIN (PLAIN) PO SCH ×4 (11:47→21:07)
[2020-03-19] MEDS: TYLENOL 325 MG TAB PO PRN (13:01)
--- NOTE | 2020-03-19 14:44 | MRI ---
HISTORYSEVERE NECK PAINSTUDYCERVICAL W/O CONCOMPARISONNone availableTECHNIQUEMultiplanar multisequence MRI of the cervical spine was obtained utilizing standard departmental protocol.FINDINGSThere is a straightening of the cervical spine. The cervical cord is normal in size and signal. There is a mild focal deformity of C2 along the odontoid and the vertebral body that could be congenital versus an old fracture. there is mild atlantoaxial facet disease in the left. No focal stenosis at C1-C2. There is no evidence of bone marrow edema. No focal bone marrow lesions. The vertebral height and disc spaces are preserved. There is and small anterior osteophyte at C3-C4. The thyroid gland is no significant enlarged.C2 -- C3: No evidence of disc herniation or spinal canal or neural foraminal stenosesC3 -- C4: There is a broad-based disc osteophyte, no evidence of a spinal canal or neural foraminal stenosis, mild facet hypertrophyC4 -- C5: No disc herniation or significant spinal canal or neural foraminal stenosesC5 -- C6: No disc herniation or spinal canal or neural foraminal stenosis, no facet diseaseC6 -- C7: There is a small disc bulging with a left paracentral component,no evidence of spinal canal or neural foraminal stenosis no facet diseaseC7 -- T1: No evidence of disc herniation or spinal canal or neural foraminal stenoses, no facet disease.IMPRESSIONBroad-based disc osteophyte at C3-C4 without spinal canal stenosis and mild facet hypertrophy. 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
--- NOTE | 2020-03-19 19:22 | PCM.PROG ---
Progress Note - Progress Note for Day of Date of Exam: 03/18/20 - Subjective Subjective: IS BEING TREATED FOR CHEST PAIN RULE OUT ACUTE MD, LEUKOCYTOSIS, ACUTE SINUS INFECTION, AND SEVERE NECK PAIN. TODAY, SHE IS ALERT AND ORIENTED, LYING IN BED ON MORNING ROUNDS. SHE CONTINUES WITH SEVERE HEADACHE AND SINUS CONGESTION. SHE REPORTS A BURING SENSATION THAT STARTS AT THE BASE OF THE HEAD AND RUNS DOWN THE SPINE TO THE FEET. SHE DENIES CHEST PAIN THIS MORNING. ON EXAMINATION, HEART IS REGULAR IN RATE AND RHYTHM. BILATERAL LUNGS ARE NOTED WITH DIMINISHED LUNG SOUNDS THROUGHOUT. ABDOMEN IS ROUND, SOFT, AND NON-TENDER WITH NORMAL BOWEL SOUNDS NOTED IN ALL QUADRANTS. HER VITALS THIS MORNING ARE: 98.1-75-20-98%-127/59. LABS WERE OBTAINED. ABNORMAL LAB VALUES INCLUDE THE FOLLOWING: WBC 11.4, HGB 11.5, HCT 34.9, POTASSIUM 3.4, GLUCOSE 131, CALCIUM 7.9, AST 9, ALK PHOS 42, ALBUMIN 3.3. CARDIAC ENZYMES ARE WITHIN NORMAL LIMITS. BLOOD AND STOOL CULTURES ARE PENDING. SHE IS CURRENTLY RECEIVING NORMAL SALINE AT 80 ML/HR, ZOSYN 4.5G IV TID, FLONASE 2 SPRAYS TO EACH NOSTRIL DAILY, THE POTASSIUM AND MAGNESIUM PROTOCOLS, AND A ZOFRAN COCKTAIL. TODAY, WE WILL ADD VALIUM 5MG PO TID PRN, SOLU-MEDROL 80MG IV Q8H, OBTAIN A CERVICAL SPINE MRI WITHOUT CONTRAST, AND AN ANCA PROFILE. OTHERWISE, WE PLAN TO FOLLOW UP WITH AM LABS AND CONTINUE TO MONITOR. - Past Medical Family Social History Past Med/Fam/Surg Hx: No changes since H&P Allergies: Allergies ibuprofen Allergy (Verified 03/15/20 13:14) levofloxacin [From Levaquin] Allergy (Verified 03/15/20 14:19) - Review of Systems ROS: No change since H&P - Vital Signs and I&O's Vital Signs: Temperature 98.8 F Pulse Rate [Right Brachial] 63 Pulse Rate 63 Respiratory Rate 18 Blood Pressure [Right Arm] 134/61 O2 Sat by Pulse Oximetry 96 Intake and Output: Intake & Output 03/17/20 03/18/20 03/19/20 03/20/20 11:59 11:59 11:59 11:59 Intake Total 3902 / 3902 3780 / 3780 2960 / 2960 740 / 740 Balance 3902 / 3902 3780 / 3780 2960 / 2960 740 / 740 - Physical Exam Oriented: Normal Eyes: Normal Ear: Normal Nose: Normal Throat: Normal Respiratory: Generalized, Diminished Cardiovascular: Normal : Normal Auscultation: Bowel Sounds: Normal Palpation: Normal Tenderness: Normal Skin: Normal Musculoskeletal: Normal Psychiatric: Normal Mood Description: Calm Affect: Normal Speech Pattern: Clear, Appropriate - Laboratory and Diagnostics Result Diagrams: 03/19/20 05:12 03/19/20 05:12 Labs: 03/15/20 18:00 Stool Stool Culture - Final 03/15/20 18:00 Stool - Final 03/15/20 13:09 Blood Blood Culture - Preliminary 03/15/20 13:00 Blood Blood Culture - Preliminary Laboratory WBC 14.5 X10^3/uL (3.6-10.0) H 03/19/20 05:12 RBC 4.06 X10^6/uL (3.5-5.4) 03/19/20 05:12 Hgb 11.2 g/dL (12.0-16.0) L 03/19/20 05:12 Hct 34.3 % (36.0-47.0) L 03/19/20 05:12 MCV 84.4 fL (80.0-100.0) 03/19/20 05:12 MCH 27.6 pg (27.0-34.0) 03/19/20 05:12 MCHC 32.7 g/dL (33.0-35.0) L 03/19/20 05:12 RDW 14.6 % (11.6-16.5) 03/19/20 05:12 Plt Count 196 X10^3/uL (150.0-450.0) 03/19/20 05:12 Plt Count Comment Adequate (ADEQUATE) 03/16/20 04:20 MPV 8.5 fL (7.4-11.0) 03/19/20 05:12 Neut % (Auto) 85.8 % (42.0-75.0) H 03/19/20 05:12 Lymph % (Auto) 9.4 % (21.0-51.0) L 03/19/20 05:12 [place] % (Auto) 4.7 % (0.0-13.0) 03/19/20 05:12 Eos % (Auto) 0.0 % (0.9-2.9) L 03/19/20 05:12 Baso % (Auto) 0.1 % (0.2-1.0) L 03/19/20 05:12 Neut # (Auto) 12.4 x10^3/uL (2.2-4.8) H 03/19/20 05:12 Lymph # (Auto) 1.4 X10^3/uL (1.3-2.9) 03/19/20 05:12 [place] # (Auto) 0.7 x10^3/uL (0.3-0.8) 03/19/20 05:12 Eos # (Auto) 0.0 x10^3/uL (0.0-0.2) 03/19/20 05:12 Baso # (Auto) 0.0 X10^3/uL (0.0-0.1) 03/19/20 05:12 Absolute Nucleated RBC 0.0 /100WBC 03/19/20 05:12 Total Counted 100 03/16/20 04:20 Neutrophils % (Manual) 90 % (39-76) H 03/16/20 04:20 Band Neutrophils % 2 % (0-10) 03/16/20 04:20 Lymphocytes % (Manual) 7 % (13-43) L 03/16/20 04:20 Monocytes % (Manual) 1 % (4-9) L 03/16/20 04:20 Plt Morphology Comment Normal (NORMAL) 03/16/20 04:20 RBC Morphology Normal (NORMAL) 03/16/20 04:20 ESR 7 MM/HOUR (0-20) 03/18/20 05:03 Sodium 140 mmol/L (136-145) 03/19/20 05:12 Corrected Sodium 141 mmol/L (136-145) 03/19/20 05:12 Potassium 3.3 mmol/L (3.5-5.1) L 03/19/20 05:12 Chloride 105 mmol/L (98-107) 03/19/20 05:12 Carbon Dioxide 25.4 mmol/L (21-32) 03/19/20 05:12 BUN 9 mg/dL (7-18) 03/19/20 05:12 Creatinine 0.74 mg/dL (0.55-1.02) 03/19/20 05:12 Est GFR (MDRD) Af Amer > 60 (>60) 03/19/20 05:12 Est GFR (MDRD) Non-Af > 60 (>60) 03/19/20 05:12 Glucose 132 mg/dL (65-99) H 03/19/20 05:12 Calcium 7.9 mg/dL (8.5-10.1) L 03/19/20 05:12 Corrected Calcium 8.6 mg/dL (8.5-10.1) 03/19/20 05:12 Magnesium 1.7 mg/dL (1.7-2.9) 03/19/20 05:12 Ferritin 44 ng/mL (8-252) 03/15/20 13:00 Total Bilirubin 0.20 mg/dL (0.2-1.0) 03/19/20 05:12 AST 11 Units/L (15-37) L 03/19/20 05:12 ALT 24 Units/L (12-78) 03/19/20 05:12 Alkaline Phosphatase 39 Units/L (46-116) L 03/19/20 05:12 Creatine Kinase 72 Units/L (26-192) 03/15/20 20:44 CK-MB (CK-2) < 1.0 ng/mL (0-4.0) 03/15/20 20:44 CK/CKMB % Calc 1.4 % (<4) 03/15/20 20:44 Troponin I < 0.02 ng/mL (0-1.5) 03/15/20 20:44 C-Reactive Protein 0.00 mg/L (0-3.0) 03/18/20 05:03 Total Protein 6.2 g/dL (6.4-8.2) L 03/19/20 05:12 Albumin 3.1 g/dL (3.4-5.0) L 03/19/20 05:12 Globulin 3.1 g/dL (2.5-4.5) 03/19/20 05:12 Albumin/Globulin Ratio 1.0 Ratio (1.1-2.1) L 03/19/20 05:12 Stool Description 10 g.liquid/brown 03/15/20 18:00 Stl Occult Blood (IFOB) Negative (NEGATIVE) 03/15/20 18:00 Stool for White Cells Negative (NEGATIVE) 03/15/20 18:00 Stl C. diff Tox B Gene Negative (NEGATIVE) 03/15/20 18:00 Stl C. diff [id number]-NAP1-BI Negative (NEGATIVE) 03/15/20 18:00 SARS-CoV-2 (PCR) Negative (NEGATIVE) 03/15/20 12:15 - Plan (1) Leukocytosis Status: Acute Qualifiers: Leukocytosis type: unspecified Qualified Code(s): D72.829 - Elevated white blood cell count, unspecified Plan: NORMAL SALINE AT 80 ML/HR, ZOSYN 4.5G IV TID, FLONASE 2 SPRAYS TO EACH NOSTRIL DAILY, THE POTASSIUM AND MAGNESIUM PROTOCOLS, AND A ZOFRAN COCKTAIL (2) Sinus infection Status: Acute Qualifiers: Sinusitis location: frontal Chronicity: acute Recurrence: not specified as recurrent Qualified Code(s): J01.10 - Acute frontal sinusitis, unspecified (3) Severe headache Status: Acute
[2020-03-19] MEDS: MAGNESIUM SULFATE 1 GRAM/100 mL PREMIX 1 GM/100 ML BAG IV PRN ×2 (21:00→22:49)
[2020-03-19] MEDS ORDERED: SINGULAIR TAB 10 MG PO SCH (21:00)
[2020-03-19] MEDS: K-DUR TAB 20 MEQ PO PRN (21:10)
--- NOTE | 2020-03-19 22:26 | PCM.PROG ---
Progress Note - Progress Note for Day of Date of Exam: 03/19/20 - Subjective Subjective: IS BEING TREATED FOR LEUKOCYTOSIS, ACUTE SINUS INFECTION, AND SEVERE NECK PAIN. TODAY, SHE IS ALERT AND ORIENTED, LYING IN BED ON MORNING ROUNDS. SHE CONTINUES WITH SEVERE HEADACHE, SINUS CONGESTION, AND NECK PAIN. SHE DOES REPORTS SLIGHT IMPROVEMENT SINCE YESTERDAY. ON EXAMINATION, HEART IS REGULAR IN RATE AND RHYTHM. BILATERAL LUNGS ARE NOTED WITH DIMINISHED LUNG SOUNDS THROUGHOUT. ABDOMEN IS ROUND, SOFT, AND NON-TENDER WITH NORMAL BOWEL SOUNDS NOTED IN ALL QUADRANTS. HER VITALS THIS MORNING ARE: 98.1-72-18-97%-137/63. LABS WERE OBTAINED. ABNORMAL LAB VALUES INCLUDE THE FOLL OWING: WBC 14.5, HGB 11.2, HCT 34.3, POTASSIUM 3.3, GLUCOSE 132, CALCIUM 7.9, AST 11, ALK PHOS 39, TOTAL PROTEIN 6.2, ALBUMIN 3.1. ANCA PROFILE PENDING. BLOOD AND STOOL CULTURES ARE PENDING. SHE IS CURRENTLY RECEIVING NORMAL SALINE AT 80 ML/HR, ZOSYN 4.5G IV TID, FLONASE 2 SPRAYS TO EACH NOSTRIL DAILY, VALIUM 5MG PO TID PRN, SOLU-MEDROL 80MG IV Q8H, THE POTASSIUM AND MAGNESIUM PROTOCOLS, AND A ZOFRAN COCKTAIL. WE WILL OBTAIN A CERVICAL SPINE MRI WITHOUT CONTRAST TODAY. WE WILL START GUAIFENESIN 100MG PO QID AND SINGULAIR 10MG PO DAILY. OTHERWISE, WE PLAN TO FOLLOW UP WITH AM LABS AND CONTINUE TO MONITOR. - Past Medical Family Social History Past Med/Fam/Surg Hx: No changes since H&P Allergies: Allergies ibuprofen Allergy (Verified 03/15/20 13:14) levofloxacin [From Levaquin] Allergy (Verified 03/15/20 14:19) - Review of Systems ROS: No change since H&P - Vital Signs and I&O's Vital Signs: Temperature 98.8 F Pulse Rate [Right Brachial] 63 Pulse Rate 63 Respiratory Rate 18 Blood Pressure [Right Arm] 134/61 O2 Sat by Pulse Oximetry 98 Intake and Output: Intake & Output 03/17/20 03/18/20 03/19/20 03/20/20 11:59 11:59 11:59 11:59 Intake Total 3902 / 3902 3780 / 3780 2960 / 2960 740 / 740 Balance 3902 / 3902 3780 / 3780 2960 / 2960 740 / 740 - Physical Exam Oriented: Normal Eyes: Normal Ear: Normal Nose: Normal Throat: Normal Respiratory: Generalized, Diminished Cardiovascular: Normal : Normal Auscultation: Bowel Sounds: Normal Tenderness: Normal Skin: Normal Musculoskeletal: Normal Psychiatric: Normal Mood Description: Calm Affect: Normal Speech Pattern: Clear, Appropriate - Laboratory and Diagnostics Result Diagrams: 03/19/20 05:12 03/19/20 05:12 Labs: 03/15/20 18:00 Stool Stool Culture - Final 03/15/20 18:00 Stool - Final 03/15/20 13:09 Blood Blood Culture - Preliminary 03/15/20 13:00 Blood Blood Culture - Preliminary Laboratory WBC 14.5 X10^3/uL (3.6-10.0) H 03/19/20 05:12 RBC 4.06 X10^6/uL (3.5-5.4) 03/19/20 05:12 Hgb 11.2 g/dL (12.0-16.0) L 03/19/20 05:12 Hct 34.3 % (36.0-47.0) L 03/19/20 05:12 MCV 84.4 fL (80.0-100.0) 03/19/20 05:12 MCH 27.6 pg (27.0-34.0) 03/19/20 05:12 MCHC 32.7 g/dL (33.0-35.0) L 03/19/20 05:12 RDW 14.6 % (11.6-16.5) 03/19/20 05:12 Plt Count 196 X10^3/uL (150.0-450.0) 03/19/20 05:12 Plt Count Comment Adequate (ADEQUATE) 03/16/20 04:20 MPV 8.5 fL (7.4-11.0) 03/19/20 05:12 Neut % (Auto) 85.8 % (42.0-75.0) H 03/19/20 05:12 Lymph % (Auto) 9.4 % (21.0-51.0) L 03/19/20 05:12 [place] % (Auto) 4.7 % (0.0-13.0) 03/19/20 05:12 Eos % (Auto) 0.0 % (0.9-2.9) L 03/19/20 05:12 Baso % (Auto) 0.1 % (0.2-1.0) L 03/19/20 05:12 Neut # (Auto) 12.4 x10^3/uL (2.2-4.8) H 03/19/20 05:12 Lymph # (Auto) 1.4 X10^3/uL (1.3-2.9) 03/19/20 05:12 [place] # (Auto) 0.7 x10^3/uL (0.3-0.8) 03/19/20 05:12 Eos # (Auto) 0.0 x10^3/uL (0.0-0.2) 03/19/20 05:12 Baso # (Auto) 0.0 X10^3/uL (0.0-0.1) 03/19/20 05:12 Absolute Nucleated RBC 0.0 /100WBC 03/19/20 05:12 Total Counted 100 03/16/20 04:20 Neutrophils % (Manual) 90 % (39-76) H 03/16/20 04:20 Band Neutrophils % 2 % (0-10) 03/16/20 04:20 Lymphocytes % (Manual) 7 % (13-43) L 03/16/20 04:20 Monocytes % (Manual) 1 % (4-9) L 03/16/20 04:20 Plt Morphology Comment Normal (NORMAL) 03/16/20 04:20 RBC Morphology Normal (NORMAL) 03/16/20 04:20 ESR 7 MM/HOUR (0-20) 03/18/20 05:03 Sodium 140 mmol/L (136-145) 03/19/20 05:12 Corrected Sodium 141 mmol/L (136-145) 03/19/20 05:12 Potassium 3.3 mmol/L (3.5-5.1) L 03/19/20 05:12 Chloride 105 mmol/L (98-107) 03/19/20 05:12 Carbon Dioxide 25.4 mmol/L (21-32) 03/19/20 05:12 BUN 9 mg/dL (7-18) 03/19/20 05:12 Creatinine 0.74 mg/dL (0.55-1.02) 03/19/20 05:12 Est GFR (MDRD) Af Amer > 60 (>60) 03/19/20 05:12 Est GFR (MDRD) Non-Af > 60 (>60) 03/19/20 05:12 Glucose 132 mg/dL (65-99) H 03/19/20 05:12 Calcium 7.9 mg/dL (8.5-10.1) L 03/19/20 05:12 Corrected Calcium 8.6 mg/dL (8.5-10.1) 03/19/20 05:12 Magnesium 1.7 mg/dL (1.7-2.9) 03/19/20 05:12 Ferritin 44 ng/mL (8-252) 03/15/20 13:00 Total Bilirubin 0.20 mg/dL (0.2-1.0) 03/19/20 05:12 AST 11 Units/L (15-37) L 03/19/20 05:12 ALT 24 Units/L (12-78) 03/19/20 05:12 Alkaline Phosphatase 39 Units/L (46-116) L 03/19/20 05:12 Creatine Kinase 72 Units/L (26-192) 03/15/20 20:44 CK-MB (CK-2) < 1.0 ng/mL (0-4.0) 03/15/20 20:44 CK/CKMB % Calc 1.4 % (<4) 03/15/20 20:44 Troponin I < 0.02 ng/mL (0-1.5) 03/15/20 20:44 C-Reactive Protein 0.00 mg/L (0-3.0) 03/18/20 05:03 Total Protein 6.2 g/dL (6.4-8.2) L 03/19/20 05:12 Albumin 3.1 g/dL (3.4-5.0) L 03/19/20 05:12 Globulin 3.1 g/dL (2.5-4.5) 03/19/20 05:12 Albumin/Globulin Ratio 1.0 Ratio (1.1-2.1) L 03/19/20 05:12 Stool Description 10 g.liquid/brown 03/15/20 18:00 Stl Occult Blood (IFOB) Negative (NEGATIVE) 03/15/20 18:00 Stool for White Cells Negative (NEGATIVE) 03/15/20 18:00 Stl C. diff Tox B Gene Negative (NEGATIVE) 03/15/20 18:00 Stl C. diff [id number]-BI Negative (NEGATIVE) 03/15/20 18:00 SARS-CoV-2 (PCR) Negative (NEGATIVE) 03/15/20 12:15 - Plan (1) Leukocytosis Status: Acute Qualifiers: Leukocytosis type: unspecified Qualified Code(s): D72.829 - Elevated white blood cell count, unspecified Plan: NORMAL SALINE AT 80 ML/HR, ZOSYN 4.5G IV TID, FLONASE 2 SPRAYS TO EACH NOSTRIL DAILY, THE POTASSIUM AND MAGNESIUM PROTOCOLS, AND A ZOFRAN COCKTAIL (2) Sinus infection Status: Acute Qualifiers: Sinusitis location: frontal Chronicity: acute Recurrence: not specified as recurrent Qualified Code(s): J01.10 - Acute frontal sinusitis, unspecified (3) Severe headache Status: Acute
[2020-03-19] MEDS ORDERED: MAALOX or MYLANTA PO PRN (22:31)
[2020-03-20] MEDS ORDERED: NS 100 ML IV + SPIKE MINIBAG* 100 ML IV ONE (05:29)
[2020-03-20] MEDS: SOLU-Medrol 40 MG VIAL IVP SCH (05:39)
[2020-03-20] MEDS: ZOSYN VIAL 4.5 GRAMS 4.5 G in NS 100 ML IV 100 ML IV SCH (05:39)
[2020-03-20 06:24] LABS: BASOPHILS % (AUTO) 0 % (0.2-1.0); HEMATOCRIT 35.2 % (36.0-47.0); HEMOGLOBIN 11.5 g/dL (12.0-16.0); LYMPHOCYTES # (AUTO) 1.4 X10^3/uL (1.3-2.9); MEAN CORPUSCULAR HEMOGLOBIN 27.8 pg (27.0-34.0); MEAN CORPUSCULAR HGB CONC 32.7 g/dL (33.0-35.0); MEAN PLATELET VOLUME 8.2 fL (7.4-11.0); MONOCYTES # (AUTO) 0.6 x10^3/uL (0.3-0.8); NEUTROPHILS # (AUTO) 10.8 x10^3/uL (2.2-4.8); PLATELET COUNT 169 X10^3/uL (150.0-450.0); RED BLOOD COUNT 4.14 X10^6/uL (3.5-5.4); RED CELL DISTRIBUTION WIDTH 14.6 % (11.6-16.5); WHITE BLOOD COUNT 12.8 X10^3/uL (3.6-10.0)
[2020-03-20 06:37] LABS: ALANINE AMINOTRANSFERASE 36 Units/L (12-78); ALKALINE PHOSPHATASE 38 Units/L (46-116); ASPARTATE AMINO TRANSFERASE 17 Units/L (15-37); BLOOD UREA NITROGEN 12 mg/dL (7-18); CALCIUM 7.9 mg/dL (8.5-10.1); CARBON DIOXIDE 26.8 mmol/L (21-32); CHLORIDE 105 mmol/L (98-107); COR CA(FOR HYPOALB) 8.7 mg/dL (8.5-10.1); COR NA(FOR HYPERGLY) 140 mmol/L (136-145); SODIUM 139 mmol/L (136-145); TOTAL PROTEIN 6.1 g/dL (6.4-8.2); eGFR NON BLACK RACES > 60 (>60)
[2020-03-20] MEDS: FLONASE NASAL SPRAY ENOSTRIL SCH (10:16)
[2020-03-20] MEDS: ROBITUSSIN (PLAIN) PO SCH (10:16)
[2020-03-20 11:01] VITALS: BP 142/75
== END 2020-03-20 11:45 | disposition home or self-care (01) ==
LOC: OBS → MED/SURG 13:29
PROVIDERS: ADMIT Internal Medicine; ATTEND Internal Medicine
DX: R05 Cough; M54.2 Cervicalgia; R07.89 Other chest pain; J01.10 Acute frontal sinusitis, unspecified; R06.02 Shortness of breath; R51 Headache; Z11.59 Encounter for screening for other viral diseases; D72.829 Elevated white blood cell count, unspecified
CPT/HCPCS: 36415; 70450; 71010; 71045; 72141; 80053; 82270; 82550; 82553; 82728; 83516; 83630; 83735; 84132; 84484; 85025; 85652; 86021; 86140; 86255; 87040; 87045; 87427; 87449; 87493; 87635; 87899; 93005; 94640; 94669; 94760; A4216; A4222; G0378; J0696; J1100; J2060; J2405; J2543; J2920; J2930; J3475; J3490; J7030; J7050; J7620